=== PATIENT | male | born 1980 ===

== ENCOUNTER 2017-02-27 06:54 | Emergency (ER) | payer OTHER ==
[2017-02-27 07:08] VITALS: RESP 16; O2SAT 100
[2017-02-27] MEDS ORDERED: ceFAZolin 1 GM in Sodium Chloride 0.9% 100 ML IVPB STA (07:36)
[2017-02-27] MEDS ORDERED: TDAP Vaccine 0.5 mL Syr IM ONE (07:37)
--- NOTE | 2017-02-27 07:41 | ED PDOC ---
Upper Extremity Pain/Injury Time Seen by Provider: 02/27/17 07:06 Chief Complaint (Nursing): Finger,Hand,&Wrist Chief Complaint (Provider): finger injury History Per: Patient History/Exam Limitations: no limitations Onset/Duration Of Symptoms: Mins (x 30) Current Symptoms Are (Timing): Still Present Additional Complaint(s): Willy Garza is a 36 year old male, with no previous medical history, who presents to the ED for the evaluation of a finger injury he sustained 30 minutes prior to arrival. Patient reports he was working out and got his right index finger caught between two bar bells. He denies any numbness or tingling. Unknown last tetanus vaccination. PME: none provided Past Medical History Reviewed: Historical Data, Nursing Documentation, Vital Signs Vital Signs: Last Vital Signs Temp 97.7 F 02/27/17 07:04 Pulse 52 L 02/27/17 07:04 Resp 16 02/27/17 07:04 BP 96/55 L 02/27/17 07:04 Pulse Ox 100 02/27/17 07:04 - Medical History PMH: No Chronic Diseases - Surgical History Surgical History: No Surg Hx - Family History Family History: States: Unknown Family Hx - Home Medications Home Medications: Ambulatory Orders Medication Instructions Recorded Acetaminophen [Tylenol Extra 2 tab PO Q6H #50 tablet 02/27/17 Strength] Cephalexin [Keflex] 500 mg PO Q12H #20 capsule 02/27/17 - Allergies Allergies/Adverse Reactions: Allergies Allergy/AdvReac Type Severity Reaction Status Date / Time No Known Allergies Allergy Verified 02/27/17 07:07 Review of Systems ROS Statement: Except As Marked, All Systems Reviewed And Found Negative Musculoskeletal: Positive for: Other (right index finger pain ) Neurological: Negative for: Numbness, Other (tingling ) Physical Exam - Reviewed Nursing Documentation Reviewed: Yes Vital Signs Reviewed: Yes - Physical Exam Appears: Positive for: Well, Non-toxic, No Acute Distress Pulses-Radial (R): 2+ Extremity: Positive for: Normal ROM, Other (right 2nd digit with partial nail avulsion, skin partial avulsion to the medial aspect. Bleeding controlled. ). Negative for: Deformity (gross bony ) Neurologic/Psych: Positive for: Alert, Oriented - ECG O2 Sat by Pulse Oximetry: 100 (RA) Pulse Ox Interpretation: Normal Medical Decision Making Medical Decision Making: Initial Impression: Finger injury Initial Plan: * boostrix vaccine * x-ray right hand * ancef * tylenol * reevaluation Scribe Attestation: Documented by Roxanne Isbell, acting as a scribe for Margarita Snow MD. Provider Scribe Attestation: All medical record entries made by the Scribe were at my direction and personally dictated by me. I have reviewed the chart and agree that the record accurately reflects my personal performance of the history, physical exam, medical decision making, and the department course for this patient. I have also personally directed, reviewed, and agree with the discharge instructions and disposition. 8.30a case d/w Dr. Evans. Clean wound. Dress and splint. antibiotics and followup Disposition - Clinical Impression Clinical Impression: Crushing injury of finger of right hand - Patient ED Disposition Is Patient to be Admitted: No Doctor Will See Patient In The: Office Counseled Patient/Family Regarding: Diagnosis, Need For Followup, Rx Given - Disposition Referrals: Froylan Evans MD [Staff Provider] - Disposition: Routine/Home Disposition Time: 09:22 Condition: CRITICAL Prescriptions: Acetaminophen [Tylenol Extra Strength] 2 tab PO Q6H #50 tablet Cephalexin [Keflex] 500 mg PO Q12H #20 capsule Instructions: Hand Fracture (ED), Acute Wound Care (ED) - POA Present On Arrival: Falls Or Trauma
--- NOTE | 2017-02-27 10:35 | RAD ---
PROCEDURE: Right Hand Radiographs. HISTORY: crush injury to index finger COMPARISON: None. FINDINGS: BONES: Comminuted crush fracture distal aspect 2nd distal phalanx. No definite intra-articular extension. Mildly displaced fragments. JOINTS: Normal. No osteoarthritic changes. SOFT TISSUES: Soft tissue swelling and probable laceration. OTHER FINDINGS: None. IMPRESSION: Comminuted displaced crush fracture 2nd distal phalanx.
[2017-02-27 10:52] VITALS: BP 122/65; PULSE 78; TEMP 98
== END 2017-02-27 10:41 | disposition home or self-care (01) ==
LOC: H.ER 06:54
DX: S67.190A Crushing injury of right index finger, initial encounter (principal); W23.0XXA Caught, crushed, jammed, or pinched between moving objects, initial encounter; Y92.89 Other specified places as the place of occurrence of the external cause